=== PATIENT | female | born 1945 | race Two or more races ===

== ENCOUNTER → 2017-09-21 | Outpatient (CLI) | payer OTHER ==
[~2017-09-21] MED LIST: CELEBREX100 MG; COZAAR100 MG; HYDROCHLOROTHIA25 MG; LEVODOPA; LIPITOR40 MG; PREVACID30 MG PO; SYNTHROID100 MCG; SYNTHROID112 MCG; VASOTEC5 MG
== END | disposition home or self-care (01) ==
LOC: MRI 14:33
DX: M51.17 Intervertebral disc disorders with radiculopathy, lumbosacral region (principal)
CPT/HCPCS: 72148

== ENCOUNTER 2017-10-07 12:31 | Outpatient (CLI) | payer OTHER | END 2017-10-07 16:58 | disposition home or self-care (01) | LOC: RAD 12:31 | DX: M25.562 Pain in left knee (principal) ==

== ENCOUNTER → 2017-10-14 | Emergency (ER) | payer OTHER ==
[~2017-10-14] VITALS: Ht 154.9 cm; Wt 59.4 kg
== END | disposition home or self-care (01) ==
LOC: ER 08:59
DX: I10 Essential (primary) hypertension (principal); G20 Parkinson's disease

== ENCOUNTER 2017-10-16 08:46 | Outpatient (CLI) | payer OTHER | END 2017-10-16 14:06 | disposition home or self-care (01) | LOC: MRI 08:46 | DX: G40.802 Other epilepsy, not intractable, without status epilepticus (principal) | CPT/HCPCS: 70553 ==

== ENCOUNTER 2017-10-16 09:43 | Outpatient (CLI) | payer OTHER | END 2017-10-16 14:06 | disposition home or self-care (01) | LOC: MAMO-SONO 09:43 | DX: R92.1 Mammographic calcification found on diagnostic imaging of breast (principal); Z12.31 Encounter for screening mammogram for malignant neoplasm of breast ==

== ENCOUNTER → 2018-11-08 | Outpatient (CLI) | payer OTHER | END | disposition home or self-care (01) | LOC: RAD 11:13 | DX: Z01.811 Encounter for preprocedural respiratory examination (principal) ==

== ENCOUNTER → 2019-02-02 | Outpatient (CLI) | payer OTHER | END | disposition home or self-care (01) | LOC: RAD 14:06 | DX: M25.562 Pain in left knee (principal); M25.561 Pain in right knee; M19.90 Unspecified osteoarthritis, unspecified site ==

== ENCOUNTER → 2019-05-03 | Outpatient (CLI) | payer OTHER | END | disposition home or self-care (01) | LOC: RAD 10:55 | DX: M12.861 Other specific arthropathies, not elsewhere classified, right knee (principal); M12.862 Other specific arthropathies, not elsewhere classified, left knee ==

== ENCOUNTER 2019-05-04 08:29 | Outpatient (CLI) | payer OTHER | END 2019-05-04 08:44 | disposition home or self-care (01) | LOC: SONOGRAMA 08:29 → MAMO-SONO 09:15 | DX: M19.91 Primary osteoarthritis, unspecified site (principal) ==

== ENCOUNTER 2023-06-25 09:29 | Outpatient (CLI) | payer OTHER | END 2023-06-25 09:52 | disposition home or self-care (01) | LOC: MAMO-SONO 09:29 | PROVIDERS: ATTEND Radiology Diagnostic Radiology | DX: Z12.31 Encounter for screening mammogram for malignant neoplasm of breast (principal); N60.11 Diffuse cystic mastopathy of right breast; N60.12 Diffuse cystic mastopathy of left breast ==

== ENCOUNTER 2024-08-17 04:54 | Emergency (ER) | payer OTHER ==
[~2024-08-17] VITALS: Ht 160 cm; Wt 59.0 kg
[2024-08-17] MEDS ORDERED: TETANUS & DIPHTHERIA TOX,ADULT 0.5 ML VIAL IM STA (05:18)
[2024-08-17 06:24] LABS: HEMATOCRIT 39.5 % (36.0-45.00); HEMOGLOBIN 13.7 g/dL (12.0-15.00); MEAN CELL VOLUME 95.5 fL (80.00-100.00); MEAN CORPUSCULAR HEMOGLOBIN 33.2 pg (27.00-32.0); MEAN CORPUSCULAR HGB CONC 34.8 g/dl (32.0-36.0); PLATELET COUNT 290 K/uL (150-450); RED BLOOD COUNT 4.14 M/uL (4.00-6.00); RED CELL DISTRIBUTION WIDTH 13.1 % (11.5-14.5)
[2024-08-17 06:34] LABS: INR 1.03; PARTIAL THROMBOPLASTIN TIME 21.7 SECONDS (22.0-34.0); PROTHROMBIN TIME 11.2 SECONDS (9.0-11.5)
[2024-08-17 06:37] LABS: ALBUMIN 3.5 gm/dL (3.4-5.0); ALKALINE PHOSPHATASE 96 U/L (50-136); ANION GAP 9 (10.0-20.0); AST/SGOT 15 U/L (15-37); BILIRUBIN TOTAL 0.72 mg/dL (0.3-1.2); BLOOD UREA NITROGEN 17 mg/dL (7-18); BUN CREA RATIO 22 (7.0-25.0); CALCIUM 9.6 mg/dL (8.5-10.1); CARBON DIOXIDE 28 mEq/L (21-32); CHLORIDE 107 mmol/L (98-107); CREATININE SERUM 0.78 mg/dL (0.55-1.02); GFR 70.88; GLOBULINA 3.4 G/DL (2.4-3.5); GLUCOSE FASTING 106 mg/dL (65-100); OSMOLALITY SERUM 279 MOSM/KG (275-295); POTASSIUM 4.62 mEq/L (3.5-5.1); SODIUM 139 mmol/L (136-145); TOTAL PROTEIN 6.9 gm/dL (6.4-8.2)
[2024-08-17 06:38] LABS: ALT/SGPT < 6 U/L (12-78)
== END 2024-08-17 09:59 | disposition home or self-care (01) ==
LOC: ER 04:54
PROVIDERS: General Practice
DX: S05.41XA Penetrating wound of orbit with or without foreign body, right eye, initial encounter (principal); S01.511A Laceration without foreign body of lip, initial encounter; S80.02XA Contusion of left knee, initial encounter; W18.39XA Other fall on same level, initial encounter; Y93.89 Activity, other specified; Y92.018 Other place in single-family (private) house as the place of occurrence of the external cause; Y99.9 Unspecified external cause status; R55 Syncope and collapse; I10 Essential (primary) hypertension; G20.A1 Parkinson's disease without dyskinesia, without mention of fluctuations; Z88.8 Allergy status to other drugs, medicaments and biological substances

== ENCOUNTER 2024-10-13 14:56 | Emergency (ER) | payer OTHER ==
[~2024-10-13] VITALS: Ht 157.5 cm; Wt 68.0 kg
[2024-10-13] MEDS ORDERED: LIPIDSAVE DR 11 EACH PO (15:20)
[2024-10-13 17:37] LABS: HEMATOCRIT 41.1 % (36.0-45.00); MEAN CELL VOLUME 94.4 fL (80.00-100.00); MEAN CORPUSCULAR HEMOGLOBIN 32.1 pg (27.00-32.0); PLATELET COUNT 306 K/uL (150-450); RED BLOOD COUNT 4.35 M/uL (4.00-6.00)
[2024-10-13 18:13] LABS: ALBUMIN 2.9 gm/dL (3.4-5.0); BILIRUBIN TOTAL 0.43 mg/dL (0.3-1.2); CALCIUM 9.4 mg/dL (8.5-10.1); CREATININE SERUM 0.63 mg/dL (0.55-1.02); GFR 90.69; GLOBULINA 3.6 G/DL (2.4-3.5); POTASSIUM 4.12 mEq/L (3.5-5.1); TOTAL PROTEIN 6.5 gm/dL (6.4-8.2)
[2024-10-13 19:14] LABS: PH,URINE 5.5 (5.0-8.0); URINE APPEARANCE Cloudy; URINE BILIRRUBIN Negative (NEGATIVE); URINE BLOOD Negative; URINE COLOR Yellow; URINE GLUCOSE Negative (NEGATIVE); URINE KETONE Negative (NEGATIVE); URINE LEUKOCYTE Small; URINE NITRATE Positive; URINE PROTEIN Negative (NEGATIVE); URINE UROBILINOGEN 0.2 E.U./dl
[2024-10-13 19:18] LABS: URINE EPITHELIAL CELLS 12.5 uL (0.0-38.8); URINE RBC 6.4 uL (0.0-20.8); URINE WBC 102.1 uL (0.0-23.2)
[2024-10-13 20:06] LABS: URINE BACTERIA > 9821.5 uL (0.0-1933); URINE CAST 0.58 uL (0.0-1.40)
[2024-10-13 20:07] LABS: URINE CRYSTALS FEW /HPF
[2024-10-13] MEDS ORDERED: BACTRIM DS TAB1 EACH PO (21:07)
[2024-10-13] MEDS ORDERED: CEFTRIAXONE SODIUM 1,000 MG VIAL IV ONE (21:15)
== END 2024-10-13 22:13 ==
LOC: ER 14:56
PROVIDERS: Emergency Medicine
DX: N39.0 Urinary tract infection, site not specified (principal); I10 Essential (primary) hypertension; E03.8 Other specified hypothyroidism; Z88.1 Allergy status to other antibiotic agents; Z88.6 Allergy status to analgesic agent
CPT/HCPCS: 36415; 51702; 96365; 99282; J0696